=== PATIENT | male | born 1950 | race Caucasian/White ===

== ENCOUNTER 2019-05-29 19:55 | Emergency (ER) | payer MEDICARE ==
--- NOTE | 2019-05-29 20:04 | ERPHSYRPT ---
- History of Present Illness Time Seen by Provider: 05/29/19 20:04 Historian: patient Physician History: 69 y/o diabetic white male with h/o cabg 11 years ago, presents with ant bilat chest pain horizontally oriented. began suddenly at 1800. pt has been intermittent. no soa and no abd pain. pt is a former smoker. no anticoag tx. 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 pt is being worked up for multiple myeloma Timing/Duration: today Activities at Onset: none Quality: pressure, tightness Location: substernal, central Chest Pain Radiation: no radiation Severity of Pain-Max: mild Severity of Pain-Current: mild Modifying Factors: Improves With: aspirin Associated Symptoms: No nausea, No vomiting, No palpitations, No heartburn, No abdominal pain, No shortness of breath, No cough, No weakness Prior Chest Pain/Cardiac Workup: heart attack (cabg in past) Nitro Today/Relief: no nitro taken today Aspirin Treatment Today: 81 mg x 4 Allergies/Adverse Reactions: Penicillins Allergy (Verified 05/29/19 20:20) Rash Home Medications: Gabapentin [Neurontin] 600 mg PO BID 05/29/19 [History] Prednisone 10 mg [Deltasone 10 mg] 10 mg PO DAILY 05/29/19 [History] Tamsulosin HCl 0.4 mg [Flomax 0.4 MG] 0.4 mg PO DAILY 05/29/19 [History] - Review of Systems Constitutional: No Symptoms Eyes: No Symptoms Ears, Nose, & Throat: No Symptoms Respiratory: No Symptoms Cardiac: Chest Pain Abdominal/Gastrointestinal: No Symptoms Genitourinary Symptoms: No Symptoms Musculoskeletal: Joint Pain (right no injury) Skin: No Symptoms Neurological: No Symptoms Psychological: No Symptoms Endocrine: No Symptoms Hematologic/Lymphatic: No Symptoms Immunological/Allergic: No Symptoms All Other Systems: Reviewed and Negative - Past Medical History Neurological History: No Pertinent History ENT History: No Pertinent History Cardiac History: Coronary Artery Disease, Myocardial Infarction ([place]) Respiratory History: No Pertinent History Endocrine Medical History: Diabetes Type II Musculoskeletal History: Bone Cancer (?) GI Medical History: No Pertinent History History: No Pertinent History Psycho-Social History: No Pertinent History Male Reproductive Disorders: No Pertinent History - Past Surgical History Neuro Surgical History: No Pertinent History Cardiac: CABG Respiratory: No Pertinent History Gastrointestinal: No Pertinent History Genitourinary: No Pertinent History Musculoskeletal: No Pertinent History Male Surgical History: No Pertinent History - Social History Smoking Status: Former smoker - Nursing Vital Signs Nursing Vital Signs: Initial Vital Signs Temperature 98.3 F 05/29/19 20:07 Pulse Rate 70 05/29/19 20:07 Respiratory Rate 16 05/29/19 20:07 Blood Pressure 147/74 05/29/19 20:07 O2 Sat by Pulse Oximetry 95 05/29/19 20:07 Pain Scale Pain Intensity 0 - Physical Exam General Appearance: no apparent distress, alert, anxiety Eye Exam: PERRL/EOMI, eyes nml inspection Ears, Nose, Throat Exam: normal ENT inspection, moist mucous membranes Neck Exam: normal inspection, non-tender, supple, full range of motion Respiratory Exam: normal breath sounds, chest tenderness, lungs clear, No respiratory distress, No airway intact Cardiovascular Exam: regular rate/rhythm, normal heart sounds, normal peripheral pulses Gastrointestinal/Abdomen Exam: soft, normal bowel sounds, No tenderness Rectal Exam: deferred, not done Back Exam: normal inspection, normal range of motion, CVA tenderness Extremity Exam: normal inspection, normal range of motion, pelvis stable, tenderness (mild tenderness right post shoulder) Neurologic Exam: alert, oriented x 3, cooperative, channel lip wetter II-XII nml as tested Skin Exam: normal color, warm, dry Lymphatic Exam: No adenopathy SpO2 Interpretation: normal O2 Delivery: Room Air - Course Nursing assessment & vital signs reviewed: Yes EKG Interpreted by Me: RATE (74), Sinus Rhythm, Right Bundle Branch Block, Other (SI/QIII pattern. no comparison ekg) Ordered Tests: Active Orders 24 hr Category Date Time Status College Archivist STAT Care 05/29/19 20:05 Active EKG-ER Only STAT Care 05/29/19 20:04 Active IV Insertion STAT Care 05/29/19 20:04 Active Pulse Oximetry (ED) STAT Care 05/29/19 20:04 Active CHEST 1 VIEW (PORTABLE) Stat Exams 05/29/19 20:25 Taken CBC W DIFF Stat Lab 05/29/19 20:30 Completed CMP Stat Lab 05/29/19 20:30 Completed D-DIMER QUANTITATION Stat Lab 05/29/19 20:30 Completed NT PRO BNP Stat Lab 05/29/19 20:30 Completed TROPONIN Q3H Lab 05/29/19 20:30 Completed TROPONIN Q3H Lab 05/29/19 23:15 Ordered TROPONIN Q3H Lab 05/30/19 02:15 Ordered TROPONIN Q3H Lab 05/30/19 05:15 Ordered TROPONIN Q3H Lab 05/30/19 08:15 Ordered Medication Summary Generic Name Dose Route Start Last Admin Trade Name Eddiq PRN Reason Stop Dose Admin Sodium Chloride 1,000 mls @ 50 mls/hr 05/29/19 20:15 05/29/19 20:20 Sodium Chloride 0.9% 1000 Ml IV 06/28/19 20:14 50 mls/hr .Q20H KYRA Administration Lab/Rad Data: Laboratory Result Diagrams 05/29/19 20:30 05/29/19 20:30 Laboratory Results 05/29/19 05/29/19 05/29/19 Range/Units 20:30 20:30 20:30 WBC (4.0-10.5) K/mm3 RBC (4.1-5.6) M/mm3 Hgb (12.5-18.0) gm/dl Hct (42-50) % MCV (78-100) fl MCH (26-32) pg MCHC (32-36) g/dl RDW (11.5-14.0) % Plt Count (150-450) K/mm3 MPV (6-9.5) fl Gran % (36.0-66.0) % Eos # (Auto) (0-0.5) Absolute Lymphs (auto) (1.0-4.6) Absolute Monos (auto) (0.0-1.3) Lymphocytes % (24.0-44.0) % Monocytes % (0.0-12.0) % Eosinophils % (0.00-5.0) % Basophils % (0.0-0.4) % Absolute Granulocytes (1.4-6.9) Basophils # (0-0.4) D-Dimer 549 H* (215-500) ng/mL Sodium 140 (137-145) mmol/L Potassium 4.0 (3.5-5.1) mmol/L Chloride 107 (98-107) mmol/L Carbon Dioxide 27 (22-30) mmol/L Anion Gap 10.3 (5-15) MEQ/L BUN 26 H (9-20) mg/dL Creatinine 0.73 (0.66-1.25) mg/dL Estimated GFR > 60.0 ML/MIN Glucose 111 H (74-106) mg/dL Calcium 8.8 (8.4-10.2) mg/dL Total Bilirubin 0.40 (0.2-1.3) mg/dL AST 28 (17-59) U/L ALT 37 (0-50) U/L Alkaline Phosphatase 106 (38-126) U/L Troponin I 0.110 H* (0.000-0.034) ng/mL NT-Pro-B Natriuret Pep 337 (0-900) pg/mL Serum Total Protein 6.5 (6.3-8.2) g/dL Albumin 3.9 (3.5-5.0) g/dL 05/29/19 Range/Units 20:30 WBC 8.4 (4.0-10.5) K/mm3 RBC 4.29 (4.1-5.6) M/mm3 Hgb 12.6 (12.5-18.0) gm/dl Hct 38.4 L (42-50) % MCV 89.5 (78-100) fl MCH 29.4 (26-32) pg MCHC 32.8 (32-36) g/dl RDW 12.9 (11.5-14.0) % Plt Count 210 (150-450) K/mm3 MPV 10.0 H (6-9.5) fl Gran % 77.1 H (36.0-66.0) % Eos # (Auto) 0.12 (0-0.5) Absolute Lymphs (auto) 0.77 L (1.0-4.6) Absolute Monos (auto) 1.00 (0.0-1.3) Lymphocytes % 9.2 L (24.0-44.0) % Monocytes % 11.9 (0.0-12.0) % Eosinophils % 1.4 (0.00-5.0) % Basophils % 0.4 (0.0-0.4) % Absolute Granulocytes 6.46 (1.4-6.9) Basophils # 0.03 (0-0.4) D-Dimer (215-500) ng/mL Sodium (137-145) mmol/L Potassium (3.5-5.1) mmol/L Chloride (98-107) mmol/L Carbon Dioxide (22-30) mmol/L Anion Gap (5-15) MEQ/L BUN (9-20) mg/dL Creatinine (0.66-1.25) mg/dL Estimated GFR ML/MIN Glucose (74-106) mg/dL Calcium (8.4-10.2) mg/dL Total Bilirubin (0.2-1.3) mg/dL AST (17-59) U/L ALT (0-50) U/L Alkaline Phosphatase (38-126) U/L Troponin I (0.000-0.034) ng/mL NT-Pro-B Natriuret Pep (0-900) pg/mL Serum Total Protein (6.3-8.2) g/dL Albumin (3.5-5.0) g/dL - Progress Progress: unchanged Air Movement: good Progress Note: 05/29/19 21:33 cxr no acute process pt does not want any further testing. he does not want admission or transfer to another facility. he understands the benefit of admission for spanish linguist evaluation and management. he understands the risks of worsening condition including . he states he will sign ama form and will be discharged. he states he will see his pcp anthony in the morning. he was told he should return to ED if he changes his mind or sx worsen Counseled pt/family regarding: lab results, diagnosis, need for follow-up, rad results - Departure Departure Disposition: AMA Clinical Impression: Chest pain, Elevated troponin, Musculoskeletal pain Condition: Fair Critical Care Time: No Additional Instructions: return to ED if you change your mind or symptoms worsen Prescriptions: Carisoprodol 350 mg [Soma 350 mg] 350 mg PO Q8H PRN PRN #10 tablet PRN Reason: Muscle Spasms
[2019-05-29] MEDS ORDERED: Sodium Chloride 0.9% 1000 ML 1,000 ML IV SCH (20:15)
[2019-05-29] MEDS ORDERED: Sodium Chloride 0.9% 1000 ML 1,000 ML ONE (20:16)
[2019-05-29 20:20] VITALS: O2SAT 95
[2019-05-29 20:34] LABS: BASOPHIL % 0.4 % (0.0-0.4); Basophil (Absolute #) 0.03 (0-0.4); Eosinophil % 1.4 % (0.00-5.0); Eosinophil (Absolute #) 0.12 (0-0.5); Granulocyte Absolute (ANC) 6.46 (1.4-6.9); Granulocytes % 77.1 % (36.0-66.0); Hematocrit 38.4 % (42-50); Hemoglobin 12.6 gm/dl (12.5-18.0); Lymphocyte (Absolute #) 0.77 (1.0-4.6); Lymphocytes % 9.2 % (24.0-44.0); Mean Cell Volume 89.5 fl (78-100); Mean Corpuscular Hemoglobin 29.4 pg (26-32); Mean Corpuscular Hgb Concent. 32.8 g/dl (32-36); Monocytes % 11.9 % (0.0-12.0); Platelet Count 210 K/mm3 (150-450); Red Blood Count 4.29 M/mm3 (4.1-5.6); Red Cell Distribution Width 12.9 % (11.5-14.0); White Blood Count 8.4 K/mm3 (4.0-10.5)
[2019-05-29 20:53] LABS: ALBUMIN 3.9 g/dL (3.5-5.0); ALKALINE PHOSPHATASE 106 U/L (38-126); ANION GAP 10.3 MEQ/L (5-15); BLOOD UREA NITROGEN 26 mg/dL (9-20); CHLORIDE 107 mmol/L (98-107); Calcium 8.8 mg/dL (8.4-10.2); Carbon Dioxide 27 mmol/L (22-30); Creatinine 1 0.73 mg/dL (0.66-1.25); Glucose 111 mg/dL (74-106); NT PRO BNP 337 pg/mL (0-900); SGOT/AST 28 U/L (17-59); SGPT/ALT 37 U/L (0-50); SODIUM 140 mmol/L (137-145); Total Protein 6.5 g/dL (6.3-8.2)
[2019-05-29 22:02] VITALS: BP 116/61; PULSE 61
--- NOTE | 2019-05-30 09:19 | XRAY ---
Indication: Chest and right shoulder pain. Comparison: None Portable chest is clear with incidental calcified granulomas. Heart is not enlarged with CABG surgery. Bony thorax intact. Impression: Nonacute chest with chronic features.
== END 2019-05-29 22:00 | disposition left against medical advice (07) ==
LOC: ED 19:55
DX: R07.89 Other chest pain (principal); R74.8 Abnormal levels of other serum enzymes; M79.18 Myalgia, other site; E11.9 Type 2 diabetes mellitus without complications; I25.810 Atherosclerosis of coronary artery bypass graft(s) without angina pectoris; Z85.830 Personal history of malignant neoplasm of bone
CPT/HCPCS: 36415; 71045; 80053; 83880; 84484; 85025; 85379; 93005; 93041; 94760; 99284